=== PATIENT | female | born 1965 | race Caucasian/White ===

== ENCOUNTER 2019-03-03 19:10 | Observation (INO) | payer BC ==
[2019-03-03] MEDS ORDERED: Ondansetron 4 MG/2 ML SDV IVPUSH ONE (19:33)
[2019-03-03 19:59] LABS: CHLORIDE,CL 101 mmol/L (98-107); SODIUM,NA 139 mmol/L (136-145)
[2019-03-03] MEDS: Sodium Chloride 0.9% 10 ML Syringe FLUSH PRN ×2 (20:08→21:11)
[2019-03-03] MEDS ORDERED: Iopamidol 755 Mg/ML 100 ML Bottle IVPUSH ONE (20:15)
--- NOTE | 2019-03-03 20:28 | EDM.PDOC ---
ED HPI GENERAL MEDICAL PROBLEM - General Chief Complaint: Chest Pain Stated Complaint: CHEST PAIN Time Seen by Provider: 03/03/19 19:34 Source of Information: Reports: Patient History Limitations: Reports: No Limitations - History of Present Illness INITIAL COMMENTS - FREE TEXT/NARRATIVE: Patient comes to ER with history of left sided chest pain that radiates to left neck/shoulder/arm. Reports left lower jawline felt heavy/numb and affected her speech for a short while. Left arm still feels heavy. 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 Also chronic spinal pain. Receives injections in neck/spine for the pain. No history of SD/CAD but has strong family history of early SD. Father had SD in late 40s, mother in early 50s. Is followed by Cardiology at [place]. No history of similar pain. No recent health changes/trauma/heavy lifting. [place] more diaphoretic yesterday and today but denies symptoms of oncoming illness such as fever/chills/viral complaints. Does have history of hiatal hernia that sometimes acts up and causes lower chest discomfort. This does not feel like that per patient. [place] mildly SOB when diaphoretic. Currently not complaining of SOB. Does say left chest pain radiates towards her back sometimes. 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 Left Chest Pain Score (Numeric/FACES): 8 - Related Data Allergies Allergy/AdvReac Type Severity Reaction Status Date / Time No Known Allergies Allergy Verified 03/03/19 19:57 Home Meds: Home Meds Sucralfate 1 mg PO QID 03/03/19 [History] hydroCHLOROthiazide [Hydrochlorothiazide] 25 mg PO DAILY 03/03/19 [History] Past Medical History Cardiovascular History: Reports: Hypertension, Other (See Below) (chronic lower extremity edema) Gastrointestinal History: Reports: GERD, Hiatal Hernia Neurological History: Reports: Brain Injury Endocrine/Metabolic History: Reports: Obesity/BMI 30+ Hematologic History: Reports: Anemia, Iron Deficiency Social & Family History - Tobacco Use Smoking Status *Q: Never Smoker ED ROS GENERAL - Review of Systems Review Of Systems: Comprehensive ROS is negative, except as noted in HPI. ED EXAM, GENERAL - Physical Exam Exam: See Below General Appearance: Alert, No Apparent Distress, Obese Eye Exam: Bilateral Eye: EOMI, PERRL Ears: Normal External Exam Nose: No: Nasal Deformity, Nasal Swelling, Nasal Drainage Throat/Mouth: Normal Lips, Normal Voice, No Airway Compromise Head: Atraumatic, Normocephalic Neck: Supple, Other (tender with palpation over midline of cervical spine and adjacent soft tissue. Good ROM. ) Respiratory/Chest: No Respiratory Distress, Lungs Clear, No Accessory Muscle Use , Other (very tender with palpation over left anterior chest wall adjacent to left sternal border. ) Cardiovascular: Normal Peripheral Pulses, Regular Rate, Rhythm, No Murmur Peripheral Pulses: 2+: Radial (L), Radial (R) GI/Abdominal: Normal Bowel Sounds, Soft, Non-Tender, No Distention (Female) Exam: Deferred Rectal (Female) Exam: Deferred Back Exam: No: CVA Tenderness (L), CVA Tenderness (R), Muscle Spasm, Paraspinal Tenderness, Vertebral Tenderness Extremities: Normal Range of Motion, Non-Tender, Normal Capillary Refill, Pedal Edema Neurological: Alert, Oriented, Normal Cognition, No Motor/Sensory Deficits ( equal tone/strength bilaterally) Psychiatric: Normal Affect, Normal Mood Skin Exam: Warm, Dry, Intact, Normal Color EKG INTERPRETATION EKG Date: 03/03/19 Time: 19:12 Rhythm: NSR Rate (Beats/Min): 88 [place]: Normal P-Wave: Present QRS: Normal ST-T: Normal QT: Normal Course - Vital Signs Last Recorded V/S: Last Vital Signs Temp 36.7 C 03/03/19 19:10 Pulse 82 03/03/19 20:02 Resp 20 03/03/19 20:02 BP 122/86 03/03/19 20:02 Pulse Ox 99 03/03/19 20:02 - Orders/Labs/Meds Orders: Active Orders 24 hr Category Date Time Status EKG Documentation Completion [RC] ASDIRECTED Care 03/03/19 19:38 Active Peripheral IV Care [RC] . DIRECTED Care 03/03/19 19:38 Active Cervical Spine wo Cont [CT] Stat Exams 03/03/19 20:11 Ordered Chest 2V [CR] Stat Exams 03/03/19 19:31 Taken Head wo Cont [CT] Stat Exams 03/03/19 20:11 Ordered PE Chest [Ang Chest] [CT] Stat Exams 03/03/19 20:13 Ordered Sodium Chloride 0.9% [Saline Flush] Med 03/03/19 19:38 Active 10 ml FLUSH ASDIRECTED PRN Peripheral IV Insertion Adult [OM.PC] Routine Oth 03/03/19 19:38 Ordered Medication Orders Sodium Chloride (Normal Saline) 1,000 mls @ 100 mls/hr IV .BOLUS ONE Stop: 03/04/19 07:10 Ondansetron HCl (Zofran) 4 mg IVPUSH Q6H PRN PRN Reason: Nausea/Vomiting Sodium Chloride (Saline Flush) 10 ml FLUSH ASDIRECTED PRN PRN Reason: Keep Vein Open Last Admin: 03/03/19 20:08 Dose: 10 ml Labs: Laboratory Tests 03/03/19 03/03/19 03/03/19 Range/Units 19:00 19:30 19:30 WBC 5.9 (4.0-10.2) K/uL RBC 4.10 (3.77-5.09) M/uL Hgb 12.4 (11.7-15.5) g/dL Hct 36.9 (34.0-46.0) % MCV 90.0 (84.0-98.0) fL MCH 30.2 (28.2-33.3) pg MCHC 33.6 (31.7-36.0) g/dL RDW 13.2 (11.2-14.1) % Plt Count 254 (150-350) K/uL Neut % (Auto) 58.0 (45.0-80.0) % Lymph % (Auto) 30.7 (10.0-50.0) % [place] % (Auto) 9.0 (2.0-14.0) % Eos % (Auto) 2.0 (0.0-5.0) % Baso % (Auto) 0.3 (0.0-2.0) % Neut # (Auto) 3.40 (1.40-7.00) K/uL Lymph # (Auto) 1.80 (0.50-3.50) K/uL [place] # (Auto) 0.53 (0.00-1.00) K/uL Eos # (Auto) 0.12 (0.00-0.50) K/uL Baso # (Auto) 0.02 (0.00-0.20) K/uL PT 9.5 (9.5-12.0) SEC INR 0.9 APTT 27.0 (21.0-31.3) SEC D-Dimer, Quantitative (0-400) ng/mL Sodium 139 (136-145) mmol/L Potassium 3.8 (3.5-5.1) mmol/L Chloride 101 (98-107) mmol/L Carbon Dioxide 26.1 (21.0-32.0) mmol/L BUN 9 (7-18) mg/dL Creatinine 0.62 (0.51-1.17) mg/dL Est Cr Clr Drug Dosing 89.57 mL/min Estimated GFR (MDRD) > 60 mL/min Glucose 89 (74-106) mg/dL Lactic Acid (0.4-2.0) mmol/L Calcium 9.3 (8.5-10.1) mg/dL Magnesium 1.9 (1.8-2.4) mg/dL Total Bilirubin 0.4 (0.2-1.0) mg/dL AST 21 (15-37) U/L ALT 20 (12-78) U/L Alkaline Phosphatase 67 (46-116) IU/L Creatine Kinase 167 (26-308) U/L Creatine Kinase Index 1.7 (0.0-2.5) % CK-MB (CK-2) 2.80 (0.00-3.60) ng/mL Troponin I 0.000 (0.000-0.056) ng/mL NT-Pro-B Natriuret Pep 114 (0-125) pg/mL Total Protein 7.4 (6.4-8.2) g/dL Albumin 3.5 (3.4-5.0) g/dL TSH, Ultra Sensitive 1.214 (0.358-3.740) mIU/mL 03/03/19 03/03/19 Range/Units 19:30 19:30 WBC (4.0-10.2) K/uL RBC (3.77-5.09) M/uL Hgb (11.7-15.5) g/dL Hct (34.0-46.0) % MCV (84.0-98.0) fL MCH (28.2-33.3) pg MCHC (31.7-36.0) g/dL RDW (11.2-14.1) % Plt Count (150-350) K/uL Neut % (Auto) (45.0-80.0) % Lymph % (Auto) (10.0-50.0) % [place] % (Auto) (2.0-14.0) % Eos % (Auto) (0.0-5.0) % Baso % (Auto) (0.0-2.0) % Neut # (Auto) (1.40-7.00) K/uL Lymph # (Auto) (0.50-3.50) K/uL [place] # (Auto) (0.00-1.00) K/uL Eos # (Auto) (0.00-0.50) K/uL Baso # (Auto) (0.00-0.20) K/uL PT (9.5-12.0) SEC INR APTT (21.0-31.3) SEC D-Dimer, Quantitative 583 H (0-400) ng/mL Sodium (136-145) mmol/L Potassium (3.5-5.1) mmol/L Chloride (98-107) mmol/L Carbon Dioxide (21.0-32.0) mmol/L BUN (7-18) mg/dL Creatinine (0.51-1.17) mg/dL Est Cr Clr Drug Dosing mL/min Estimated GFR (MDRD) mL/min Glucose (74-106) mg/dL Lactic Acid 1.1 (0.4-2.0) mmol/L Calcium (8.5-10.1) mg/dL Magnesium (1.8-2.4) mg/dL Total Bilirubin (0.2-1.0) mg/dL AST (15-37) U/L ALT (12-78) U/L Alkaline Phosphatase (46-116) IU/L Creatine Kinase (26-308) U/L Creatine Kinase Index (0.0-2.5) % CK-MB (CK-2) (0.00-3.60) ng/mL Troponin I (0.000-0.056) ng/mL NT-Pro-B Natriuret Pep (0-125) pg/mL Total Protein (6.4-8.2) g/dL Albumin (3.4-5.0) g/dL TSH, Ultra Sensitive (0.358-3.740) mIU/mL Meds: Medications Generic Name Dose Route Start Last Admin Trade Name Freq PRN Reason Stop Dose Admin Sodium Chloride 1,000 mls @ 100 mls/hr 03/03/19 21:11 Normal Saline IV 03/04/19 07:10 .BOLUS ONE Ondansetron HCl 4 mg 03/03/19 21:05 Zofran IVPUSH Q6H PRN Nausea/Vomiting Sodium Chloride 10 ml 03/03/19 19:38 03/03/19 21:11 Saline Flush FLUSH 10 ml ASDIRECTED PRN Administration Keep Vein Open Discontinued Medications Generic Name Dose Route Start Last Admin Trade Name Freq PRN Reason Stop Dose Admin Iopamidol 100 ml 03/03/19 20:15 03/03/19 20:44 [id number] (76%) IVPUSH 03/03/19 20:16 100 ml ONETIME ONE Administration Ketorolac Tromethamine 30 mg 03/03/19 20:29 03/03/19 21:09 Toradol IVPUSH 03/03/19 20:30 30 mg ONETIME ONE Administration Ondansetron HCl 4 mg 03/03/19 19:33 03/03/19 20:08 Zofran IVPUSH 03/03/19 19:34 4 mg ONETIME ONE Administration - Re-Assessments/Exams Free Text/Narrative Re-Assessment/Exam: Cardiac routines ordered given chest pain complaint. Strong family history of CAD. Patient also has confounding factors with the chronic neck pain and degenerative changes which could cause radicular symptoms, as well as hiatal hernia which could also contribute to a chest pain complaint. DDimer elevated, thus PE also within differential. Cardiac labs/chest xray/CBC/Chem otherwise unremarkable. Symptoms are not overly suggestive of stroke given history and exam, however when this was discussed with the patient she was agreeable with having a head CT to rule out obvious intracranial changes. C-Spine also added given her pain history. She has had additional falls since her initial fall on ice 3 years ago and has sustained some collective traumas. Zofran ordered as patient felt mildly nauseated. Toradol given once lab results available. Departure - Departure Time of Disposition: 21:03 Disposition: Refer to Observation Condition: Good Clinical Impression: Atypical chest pain, Elevated d-dimer - Discharge Information *PRESCRIPTION DRUG MONITORING PROGRAM REVIEWED*: Not Applicable *COPY OF PRESCRIPTION DRUG MONITORING REPORT IN PATIENT CESAR: Not Applicable Sepsis Event Note - Evaluation Sepsis Screening Result: No Definite Risk - Focused Exam Vital Signs: Vital Signs Temp Pulse Resp BP Pulse Ox 03/03/19 20:02 82 20 122/86 99 03/03/19 19:50 81 16 132/74 98 03/03/19 19:35 86 20 154/90 H 99 03/03/19 19:10 36.7 C 86 18 140/80 97 Date Exam was Performed: 03/03/19 Time Exam was Performed: 21:12 - Problem List & Annotations (1) Atypical chest pain SNOMED Code(s): 897598675 Code(s): R07.89 - OTHER CHEST PAIN Status: Acute Priority: High Current Visit: Yes Onset Date: ~03/03/19 Annotation/Comment:: Left sided chest pain that radiates to left neck/lower jaw, left shoulder and arm. History of chronic neck pain. Character more suggestive of musculoskeletal cause. Patient has history of neck injury and chronic pain. Also strong family history of CAD. Serial troponins and telemetry ordered. + DDimer. Patient has had CT of chest ordered and currently waiting for formal reading. Also had CT of head and neck done due to history of a few falls over the past year and also to rule out intracranial contribution to complaint of left lower jaw numbness and feeling like she was slurring words earlier. Results also pending. (2) Elevated d-dimer SNOMED Code(s): 551323134 Code(s): R79.89 - OTHER SPECIFIED ABNORMAL FINDINGS OF BLOOD CHEMISTRY Status: Acute Priority: High Current Visit: Yes Onset Date: ~03/03/19 Annotation/Comment:: CT of chest performed and awaiting formal results at this time. (3) Iron deficiency anemia SNOMED Code(s): 28059448 Code(s): D50.9 - IRON DEFICIENCY ANEMIA, UNSPECIFIED Status: Chronic Priority: Low Current Visit: No Annotation/Comment:: stable. Has received IV iron therapy in past. (4) Hiatal hernia SNOMED Code(s): 63763056 Code(s): K44.9 - DIAPHRAGMATIC HERNIA WITHOUT OBSTRUCTION OR GANGRENE Status: Chronic Priority: Low Current Visit: No Annotation/Comment:: History of hiatal hernia and GERD symptoms. Patient does not feel that this chest pain is consistent with when her hiatal hernia was symptomatic in the past. (5) TBI (traumatic brain injury) SNOMED Code(s): 705588416 Code(s): S06.9X9A - UNSP INTRACRANIAL INJURY W LOC OF UNSP DURATION, INIT Status: Chronic Priority: Low Current Visit: Yes Annotation/Comment:: History of TBI approximately 3 years ago. Continues to deal with ongoing issues such as short term memory impairment. Receives PT/OT for this. (6) HTN (hypertension) SNOMED Code(s): 46311568 Code(s): I10 - ESSENTIAL (PRIMARY) HYPERTENSION Status: Chronic Priority : Low Current Visit: No Qualifiers: Hypertension type: essential hypertension Qualified Code(s): I10 - Essential (primary) hypertension - Problem List Review Problem List Initiated/Reviewed/Updated: Yes - My Orders Last 24 Hours: My Active Orders 03/03/19 19:31 Chest 2V [CR] Stat 03/03/19 19:38 EKG Documentation Completion [RC] ASDIRECTED Peripheral IV Care [RC] . DIRECTED Sodium Chloride 0.9% [Saline Flush] 10 ml FLUSH ASDIRECTED PRN Peripheral IV Insertion Adult [OM.PC] Routine 03/03/19 20:11 Cervical Spine wo Cont [CT] Stat Head wo Cont [CT] Stat 03/03/19 20:13 PE Chest [Ang Chest] [CT] Stat - Assessment/Plan Admission H&P: Please use this note as an admission H&P Last 24 Hours: My Active Orders 03/03/19 19:31 Chest 2V [CR] Stat 03/03/19 19:38 EKG Documentation Completion [RC] ASDIRECTED Peripheral IV Care [RC] . DIRECTED Sodium Chloride 0.9% [Saline Flush] 10 ml FLUSH ASDIRECTED PRN Peripheral IV Insertion Adult [OM.PC] Routine 03/03/19 20:11 Cervical Spine wo Cont [CT] Stat Head wo Cont [CT] Stat 03/03/19 20:13 PE Chest [Ang Chest] [CT] Stat Assessment:: As above. Patient stable and suitable for general supervision. She is not able to recall her regular meds at this time. will call us with meds once he gets home. Anticipate discharge tomorrow if serial troponins and CT scans are negative.
[2019-03-03] MEDS ORDERED: Ketorolac 30 MG/ML SDV IVPUSH ONE (20:29)
[2019-03-03] MEDS ORDERED: Ondansetron 4 MG/2 ML SDV IVPUSH PRN (21:05)
[2019-03-03] MEDS ORDERED: Sodium Chloride 0.9% 1,000 ML IV ONE (21:11)
--- NOTE | 2019-03-03 22:32 | PCM.SN ---
- Free Text/Narrative Note: CT of head and chest unremarkable for PE/other acute changes per Radiology. Neck shows increased degenerative changes at level C2-3 which would potentially cause discomfort in left lower jaw/neck area.
[2019-03-04] MEDS: Acetaminophen 325 MG Tab PO PRN ×2 (01:57→06:19)
[2019-03-04] MEDS ORDERED: Hydrochlorothiazide 25 MG Tab PO SCH (08:00)
[2019-03-04 08:08] LABS: CHLORIDE,CL 105 mmol/L (98-107); SODIUM,NA 141 mmol/L (136-145)
[2019-03-04] MEDS ORDERED: traMADol 50 MG Tab PO ONE (11:24)
[2019-03-04] MEDS ORDERED: Acetaminophen 500 MG Tab PO ONE (11:24)
--- NOTE | 2019-03-04 11:34 | PCM.DCSUM1 ---
Discharge Summary - Hospital Course Brief History: Admitted for r/o chest pain protocol. Complaint of left sided neck/shoulder/chest pain. Diagnosis: Stroke: No - Discharge Data Discharge Date: 03/04/19 Discharge Disposition: Home, Self-Care 01 Condition: Good - Referral to Home Health Primary Care Physician: Sariah Torrez PA-C - Discharge Diagnosis/Problem(s) (1) Atypical chest pain SNOMED Code(s): 763164405 ICD Code: R07.89 - OTHER CHEST PAIN Status: Acute Priority: High Current Visit: Yes Onset Date: ~03/03/19 Problem Details: Left sided chest pain that radiates to left neck/lower jaw, left shoulder and arm. History of chronic neck pain. Character more suggestive of musculoskeletal cause. Patient has history of neck injury and chronic pain. Serial troponins all 0.[address] to r/o PE negative. CT of neck showed increased degenerative change C2-3 which would cause radicular symptoms in area of neck/mandible. (2) Elevated d-dimer SNOMED Code(s): 822533546 ICD Code: R79.89 - OTHER SPECIFIED ABNORMAL FINDINGS OF BLOOD CHEMISTRY Status: Acute Priority: High Current Visit: Yes Onset Date: ~03/03/19 Problem Details: CT of chest negative for PE or other acute changes. (3) Iron deficiency anemia SNOMED Code(s): 66178428 ICD Code: D50.9 - IRON DEFICIENCY ANEMIA, UNSPECIFIED Status: Chronic Priority: Low Current Visit: No Problem Details: stable. Has received IV iron therapy in past. (4) Hiatal hernia SNOMED Code(s): 26881966 ICD Code: K44.9 - DIAPHRAGMATIC HERNIA WITHOUT OBSTRUCTION OR GANGRENE Status: Chronic Priority: Low Current Visit: No Problem Details: History of hiatal hernia and GERD symptoms. Patient does not feel that this chest pain is consistent with when her hiatal hernia was symptomatic in the past. (5) TBI (traumatic brain injury) SNOMED Code(s): 492215236 ICD Code: S06.9X9A - UNSP INTRACRANIAL INJURY W LOC OF UNSP DURATION, INIT Status: Chronic Priority: Low Current Visit: Yes Problem Details: History of TBI approximately 3 years ago. Continues to deal with ongoing issues such as short term memory impairment. Receives PT/OT for this. (6) HTN (hypertension) SNOMED Code(s): 16806547 ICD Code: I10 - ESSENTIAL (PRIMARY) HYPERTENSION Status: Chronic Priority : Low Current Visit: No Qualifiers: Hypertension type: essential hypertension Qualified Code(s): I10 - Essential (primary) hypertension - Patient Summary/Data Hospital Course: Serial troponins negative. Unremarkable telemetry. CT scans negative except for increased degenerative changes in cervical spine. Highly suspect musculo- skeletal etiology for pain complaint. Patient will be discharged today and is to follow up with her own providers. May need MRI study to more closely look at cervical changes. - Patient Instructions Diet: Usual Diet as Tolerated (anti-inflammatory diet recommended. ) Activity: As Tolerated Showering/Bathing: May Shower Other/Special Instructions: Consider using Magnesium Glycinate or Taurate 500mg daily. Also can rub in topical magnesium gel into tender area. CBD oil and rub can also be trialed as discussed. Dietary changes as recommended to see if pain improves/general health improves. Follow up with your providers. You may need updatated MRI of neck. Follow up in ER as needed if you have worsening problems. - Discharge Plan *PRESCRIPTION DRUG MONITORING PROGRAM REVIEWED*: Not Applicable *COPY OF PRESCRIPTION DRUG MONITORING REPORT IN PATIENT CESAR: Not Applicable Home Medications: Home Meds Sucralfate 1 mg PO QID 03/03/19 [History] hydroCHLOROthiazide [Hydrochlorothiazide] 25 mg PO DAILY 03/03/19 [History] Benzonatate [Tessalon Perle] 100 mg PO TID PRN 03/04/19 [History] Estrogens, Conjugated [Premarin Vaginal Crm] 0.5 - 1 mg VAG WEEKLY 03/04/19 [ History] Gabapentin [Neurontin] 600 mg PO TID 03/04/19 [History] Ipratropium/Albuterol Sulfate [Iprat-Albut 0.5-3(2.5) MG/3 ML] 1 unit INH Q6H [History] Metoprolol Succinate 25 mg PO DAILY 03/04/19 [History] Ondansetron [Zofran ODT] 4 mg PO Q4H PRN 03/04/19 [History] Pantoprazole Sodium 1 tab PO BIDAC 03/04/19 [History] SUMAtriptan [Imitrex] 50 mg PO ASDIRECTED PRN 03/04/19 [History] Sucralfate 1 gm PO QID 03/04/19 [History] Venlafaxine HCl [Venlafaxine ER] 37.5 mg PO DAILY 03/04/19 [History] Venlafaxine HCl [Venlafaxine HCl ER] 75 mg PO DAILY 03/04/19 [History] cycloSPORINE [Restasis] 1 drop EYEBOTH BID 03/04/19 [History] Forms: ED Department Discharge Referrals: Sariah Torrez PA-C [Primary Care Provider] - - Discharge Summary/Plan Comment DC Time >30 min.: No - General Info Date of Service: 03/04/19 Admission Dx/Problem (Free Text: Chest/neck/shoulder pain, discomfort radiating down arm. Subjective Update: Continues to have discomfort left neck/shoulder/anterior chest. Made worse with movement. No SOB. No new complaints. Functional Status: Reports: Pain Controlled (pain improved with Toradol. Is requesting Tylenol at this time. ), Tolerating Diet, Ambulating, Urinating. Denies: New Symptoms Numeric/FACES Score: 6 - Review of Systems General: Reports: No Symptoms HEENT: Reports: No Symptoms Pulmonary: Reports: No Symptoms Cardiovascular: Reports: Chest Pain (left anterior chest/shoulder/neck). Denies : Palpitations, Dyspnea on Exertion, Orthopnea, Edema Gastrointestinal: Reports: No Symptoms Genitourinary: Reports: No Symptoms Musculoskeletal: Reports: Neck Pain, Shoulder Pain. Denies: Joint Swelling Skin: Reports: No Symptoms Neurological: Reports: No Symptoms Psychiatric: Reports: No Symptoms - Patient Data Vitals - Most Recent: Last Vital Signs Temp 36.2 C 03/04/19 08:00 Pulse 60 03/04/19 08:00 Resp 16 03/04/19 08:00 BP 128/71 03/04/19 08:00 Pulse Ox 99 03/04/19 08:00 Weight - Most Recent: 108 kg I&O - Last 24 hours: Intake & Output 03/03/19 03/04/19 03/04/19 22:59 06:59 14:59 Intake Total 1420 1600 Output Total 600 625 Balance -814 124 9083 Lab Results - Last 24 hrs: Laboratory Results - last 24 hr 03/03/19 03/03/19 03/03/19 Range/Units 19:00 19:30 19:30 WBC 5.9 (4.0-10.2) K/uL RBC 4.10 (3.77-5.09) M/uL Hgb 12.4 (11.7-15.5) g/dL Hct 36.9 (34.0-46.0) % MCV 90.0 (84.0-98.0) fL MCH 30.2 (28.2-33.3) pg MCHC 33.6 (31.7-36.0) g/dL RDW 13.2 (11.2-14.1) % Plt Count 254 (150-350) K/uL Neut % (Auto) 58.0 (45.0-80.0) % Lymph % (Auto) 30.7 (10.0-50.0) % [place] % (Auto) 9.0 (2.0-14.0) % Eos % (Auto) 2.0 (0.0-5.0) % Baso % (Auto) 0.3 (0.0-2.0) % Neut # (Auto) 3.40 (1.40-7.00) K/uL Lymph # (Auto) 1.80 (0.50-3.50) K/uL [place] # (Auto) 0.53 (0.00-1.00) K/uL Eos # (Auto) 0.12 (0.00-0.50) K/uL Baso # (Auto) 0.02 (0.00-0.20) K/uL PT 9.5 (9.5-12.0) SEC INR 0.9 APTT 27.0 (21.0-31.3) SEC D-Dimer, Quantitative (0-400) ng/mL Sodium 139 (136-145) mmol/L Potassium 3.8 (3.5-5.1) mmol/L Chloride 101 (98-107) mmol/L Carbon Dioxide 26.1 (21.0-32.0) mmol/L BUN 9 (7-18) mg/dL Creatinine 0.62 (0.51-1.17) mg/dL Est Cr Clr Drug Dosing 89.57 mL/min Estimated GFR (MDRD) > 60 mL/min Glucose 89 (74-106) mg/dL Lactic Acid (0.4-2.0) mmol/L Calcium 9.3 (8.5-10.1) mg/dL Magnesium 1.9 (1.8-2.4) mg/dL Total Bilirubin 0.4 (0.2-1.0) mg/dL AST 21 (15-37) U/L ALT 20 (12-78) U/L Alkaline Phosphatase 67 (46-116) IU/L Creatine Kinase 167 (26-308) U/L Creatine Kinase Index 1.7 (0.0-2.5) % CK-MB (CK-2) 2.80 (0.00-3.60) ng/mL Troponin I 0.000 (0.000-0.056) ng/mL NT-Pro-B Natriuret Pep 114 (0-125) pg/mL Total Protein 7.4 (6.4-8.2) g/dL Albumin 3.5 (3.4-5.0) g/dL TSH, Ultra Sensitive 1.214 (0.358-3.740) mIU/mL Specimen Type Urine Color Urine Appearance Urine pH (5.0-9.0) Ur Specific [place] (1.005-1.030) Urine Protein (NEGATIVE) mg/dL Urine Glucose (UA) (NEGATIVE) mg/dL Urine Ketones (NEGATIVE) mg/dL Urine Occult Blood (NEGATIVE) Urine Nitrite (NEGATIVE) Urine Bilirubin (NEGATIVE) Urine Urobilinogen (0.2-1.0) E.U./dL Ur Leukocyte Esterase (NEGATIVE) Urine RBC /HPF Urine WBC /HPF Ur Epithelial Cells /LPF Urine Bacteria (NONE TO FEW) /HPF 03/03/19 03/03/19 03/03/19 Range/Units 19:30 19:30 21:09 WBC (4.0-10.2) K/uL RBC (3.77-5.09) M/uL Hgb (11.7-15.5) g/dL Hct (34.0-46.0) % MCV (84.0-98.0) fL MCH (28.2-33.3) pg MCHC (31.7-36.0) g/dL RDW (11.2-14.1) % Plt Count (150-350) K/uL Neut % (Auto) (45.0-80.0) % Lymph % (Auto) (10.0-50.0) % [place] % (Auto) (2.0-14.0) % Eos % (Auto) (0.0-5.0) % Baso % (Auto) (0.0-2.0) % Neut # (Auto) (1.40-7.00) K/uL Lymph # (Auto) (0.50-3.50) K/uL [place] # (Auto) (0.00-1.00) K/uL Eos # (Auto) (0.00-0.50) K/uL Baso # (Auto) (0.00-0.20) K/uL PT (9.5-12.0) SEC INR APTT (21.0-31.3) SEC D-Dimer, Quantitative 583 H (0-400) ng/mL Sodium (136-145) mmol/L Potassium (3.5-5.1) mmol/L Chloride (98-107) mmol/L Carbon Dioxide (21.0-32.0) mmol/L BUN (7-18) mg/dL Creatinine (0.51-1.17) mg/dL Est Cr Clr Drug Dosing mL/min Estimated GFR (MDRD) mL/min Glucose (74-106) mg/dL Lactic Acid 1.1 (0.4-2.0) mmol/L Calcium (8.5-10.1) mg/dL Magnesium (1.8-2.4) mg/dL Total Bilirubin (0.2-1.0) mg/dL AST (15-37) U/L ALT (12-78) U/L Alkaline Phosphatase (46-116) IU/L Creatine Kinase (26-308) U/L Creatine Kinase Index (0.0-2.5) % CK-MB (CK-2) (0.00-3.60) ng/mL Troponin I (0.000-0.056) ng/mL NT-Pro-B Natriuret Pep (0-125) pg/mL Total Protein (6.4-8.2) g/dL Albumin (3.4-5.0) g/dL TSH, Ultra Sensitive (0.358-3.740) mIU/mL Specimen Type Urinblad Urine Color Yellow Urine Appearance Clear Urine pH 7.5 (5.0-9.0) Ur Specific [place] 1.015 (1.005-1.030) Urine Protein Negative (NEGATIVE) mg/dL Urine Glucose (UA) Negative (NEGATIVE) mg/dL Urine Ketones Negative (NEGATIVE) mg/dL Urine Occult Blood Negative (NEGATIVE) Urine Nitrite Negative (NEGATIVE) Urine Bilirubin Negative (NEGATIVE) Urine Urobilinogen 0.2 (0.2-1.0) E.U./dL Ur Leukocyte Esterase Negative (NEGATIVE) Urine RBC Not seen /HPF Urine WBC Not seen /HPF Ur Epithelial Cells Rare /LPF Urine Bacteria Rare (NONE TO FEW) /HPF 03/04/19 03/04/19 03/04/19 Range/Units 01:53 07:40 07:40 WBC 4.1 (4.0-10.2) K/uL RBC 3.76 L (3.77-5.09) M/uL Hgb 11.4 L (11.7-15.5) g/dL Hct 34.4 (34.0-46.0) % MCV 91.5 (84.0-98.0) fL MCH 30.3 (28.2-33.3) pg MCHC 33.1 (31.7-36.0) g/dL RDW 13.5 (11.2-14.1) % Plt Count 235 (150-350) K/uL Neut % (Auto) 47.6 (45.0-80.0) % Lymph % (Auto) 39.1 (10.0-50.0) % [place] % (Auto) 9.4 (2.0-14.0) % Eos % (Auto) 3.4 (0.0-5.0) % Baso % (Auto) 0.5 (0.0-2.0) % Neut # (Auto) 1.97 (1.40-7.00) K/uL Lymph # (Auto) 1.62 (0.50-3.50) K/uL [place] # (Auto) 0.39 (0.00-1.00) K/uL Eos # (Auto) 0.14 (0.00-0.50) K/uL Baso # (Auto) 0.02 (0.00-0.20) K/uL PT (9.5-12.0) SEC INR APTT (21.0-31.3) SEC D-Dimer, Quantitative (0-400) ng/mL Sodium (136-145) mmol/L Potassium (3.5-5.1) mmol/L Chloride (98-107) mmol/L Carbon Dioxide (21.0-32.0) mmol/L BUN (7-18) mg/dL Creatinine (0.51-1.17) mg/dL Est Cr Clr Drug Dosing mL/min Estimated GFR (MDRD) mL/min Glucose (74-106) mg/dL Lactic Acid (0.4-2.0) mmol/L Calcium (8.5-10.1) mg/dL Magnesium (1.8-2.4) mg/dL Total Bilirubin (0.2-1.0) mg/dL AST (15-37) U/L ALT (12-78) U/L Alkaline Phosphatase (46-116) IU/L Creatine Kinase (26-308) U/L Creatine Kinase Index (0.0-2.5) % CK-MB (CK-2) (0.00-3.60) ng/mL Troponin I 0.000 0.000 (0.000-0.056) ng/mL NT-Pro-B Natriuret Pep (0-125) pg/mL Total Protein (6.4-8.2) g/dL Albumin (3.4-5.0) g/dL TSH, Ultra Sensitive (0.358-3.740) mIU/mL Specimen Type Urine Color Urine Appearance Urine pH (5.0-9.0) Ur Specific [place] (1.005-1.030) Urine Protein (NEGATIVE) mg/dL Urine Glucose (UA) (NEGATIVE) mg/dL Urine Ketones (NEGATIVE) mg/dL Urine Occult Blood (NEGATIVE) Urine Nitrite (NEGATIVE) Urine Bilirubin (NEGATIVE) Urine Urobilinogen (0.2-1.0) E.U./dL Ur Leukocyte Esterase (NEGATIVE) Urine RBC /HPF Urine WBC /HPF Ur Epithelial Cells /LPF Urine Bacteria (NONE TO FEW) /HPF 03/04/19 Range/Units 07:40 WBC (4.0-10.2) K/uL RBC (3.77-5.09) M/uL Hgb (11.7-15.5) g/dL Hct (34.0-46.0) % MCV (84.0-98.0) fL MCH (28.2-33.3) pg MCHC (31.7-36.0) g/dL RDW (11.2-14.1) % Plt Count (150-350) K/uL Neut % (Auto) (45.0-80.0) % Lymph % (Auto) (10.0-50.0) % [place] % (Auto) (2.0-14.0) % Eos % (Auto) (0.0-5.0) % Baso % (Auto) (0.0-2.0) % Neut # (Auto) (1.40-7.00) K/uL Lymph # (Auto) (0.50-3.50) K/uL [place] # (Auto) (0.00-1.00) K/uL Eos # (Auto) (0.00-0.50) K/uL Baso # (Auto) (0.00-0.20) K/uL PT (9.5-12.0) SEC INR APTT (21.0-31.3) SEC D-Dimer, Quantitative (0-400) ng/mL Sodium 141 (136-145) mmol/L Potassium 3.7 (3.5-5.1) mmol/L Chloride 105 (98-107) mmol/L Carbon Dioxide 26.9 (21.0-32.0) mmol/L BUN 8 (7-18) mg/dL Creatinine 0.64 (0.51-1.17) mg/dL Est Cr Clr Drug Dosing 86.77 mL/min Estimated GFR (MDRD) > 60 mL/min Glucose 97 (74-106) mg/dL Lactic Acid (0.4-2.0) mmol/L Calcium 8.8 (8.5-10.1) mg/dL Magnesium (1.8-2.4) mg/dL Total Bilirubin (0.2-1.0) mg/dL AST (15-37) U/L ALT (12-78) U/L Alkaline Phosphatase (46-116) IU/L Creatine Kinase (26-308) U/L Creatine Kinase Index (0.0-2.5) % CK-MB (CK-2) (0.00-3.60) ng/mL Troponin I (0.000-0.056) ng/mL NT-Pro-B Natriuret Pep (0-125) pg/mL Total Protein (6.4-8.2) g/dL Albumin (3.4-5.0) g/dL TSH, Ultra Sensitive (0.358-3.740) mIU/mL Specimen Type Urine Color Urine Appearance Urine pH (5.0-9.0) Ur Specific [place] (1.005-1.030) Urine Protein (NEGATIVE) mg/dL Urine Glucose (UA) (NEGATIVE) mg/dL Urine Ketones (NEGATIVE) mg/dL Urine Occult Blood (NEGATIVE) Urine Nitrite (NEGATIVE) Urine Bilirubin (NEGATIVE) Urine Urobilinogen (0.2-1.0) E.U./dL Ur Leukocyte Esterase (NEGATIVE) Urine RBC /HPF Urine WBC /HPF Ur Epithelial Cells /LPF Urine Bacteria (NONE TO FEW) /HPF Med Orders - Current: Current Medications Acetaminophen (Tylenol) 650 mg PO Q4H PRN PRN Reason: Pain (mild 1-3) Last Admin: 03/04/19 06:19 Dose: 650 mg Hydrochlorothiazide (Hydrochlorothiazide) 25 mg PO DAILY HARLEEN Last Admin: 03/04/19 07:13 Dose: 25 mg Ondansetron HCl (Zofran) 4 mg IVPUSH Q6H PRN PRN Reason: Nausea/Vomiting Sodium Chloride (Saline Flush) 10 ml FLUSH ASDIRECTED PRN PRN Reason: Keep Vein Open Last Admin: 03/03/19 21:11 Dose: 10 ml Discontinued Medications Acetaminophen (Tylenol Extra Strength) 1,000 mg PO ONETIME ONE Stop: 03/04/19 11:25 Sodium Chloride (Normal Saline) 1,000 mls @ 100 mls/hr IV .BOLUS ONE Stop: 03/04/19 07:10 Last Admin: 03/03/19 21:25 Dose: 100 mls/hr Iopamidol (Isovue-370 (76%)) 100 ml IVPUSH ONETIME ONE Stop: 03/03/19 20:16 Last Admin: 03/03/19 20:44 Dose: 100 ml Ketorolac Tromethamine (Toradol) 30 mg IVPUSH ONETIME ONE Stop: 03/03/19 20:30 Last Admin: 03/03/19 21:09 Dose: 30 mg Ondansetron HCl (Zofran) 4 mg IVPUSH ONETIME ONE Stop: 03/03/19 19:34 Last Admin: 03/03/19 20:08 Dose: 4 mg Tramadol HCl (Ultram) 100 mg PO ONETIME ONE Stop: 03/04/19 11:25 - Exam General: Reports: Alert, Oriented HEENT: Reports: Pupils Equal, Pupils Reactive, EOMI, Mucous Membr. Moist/[place] Neck: Reports: Supple Lungs: Reports: Clear to Auscultation, Normal Respiratory Effort Cardiovascular: Reports: Regular Rate, Regular Rhythm GI/Abdominal Exam: Soft, Non-Tender (Female) Exam: Deferred Rectal (Female) Exam: Deferred Back Exam: Denies: CVA Tenderness (L), CVA Tenderness (R), Muscle Spasm, Paraspinal Tenderness, Vertebral Tenderness Extremities: Non-Tender, Normal Capillary Refill Skin: Reports: Warm, Dry Neurological: Reports: No New Focal Deficit Psy/Mental Status: Reports: Alert, Normal Affect, Normal Mood Physical Findings Comments:: Tender with palpation left neck/left mandible/pectoral area. Reproduces patient 's pain. EKG INTERPRETATION EKG Date: 03/04/19 Time: 07:32 Rhythm: NSR Rate (Beats/Min): 64 [place]: Normal P-Wave: Present QRS: Normal ST-T: Normal QT: Normal Comparison: No Change
== END 2019-03-04 11:55 | disposition home or self-care (01) ==
LOC: LL.ED 19:10 → UNDOADMOB 20:35 → LL.MS 20:35 → UNDODISOB 03-04 11:55
PROVIDERS: ADMIT Emergency Medicine; ATTEND Emergency Medicine
DX: R07.89 Other chest pain (principal); R79.1 Abnormal coagulation profile; D50.9 Iron deficiency anemia, unspecified; K44.9 Diaphragmatic hernia without obstruction or gangrene; S06.9X9A Unspecified intracranial injury with loss of consciousness of unspecified duration, initial encounter; K21.9 Gastro-esophageal reflux disease without esophagitis; I10 Essential (primary) hypertension; E66.9 Obesity, unspecified; Z68.41 Body mass index [BMI] 40.0-44.9, adult
CPT/HCPCS: 36415; 70450; 71046; 71275; 72125; 80048; 80053; 81001; 82550; 82553; 83605; 83735; 83880; 84443; 84484; 85025; 85379; 85610; 85730; 93005; 96374; 96375; 99285-25; A9270-GY; J1885; J2405; J7030; Q9967

== ENCOUNTER 2021-12-23 15:10 | Emergency (ER) | payer BC, MEDICARE ==
[2021-12-23] MEDS ORDERED: Aspirin 81 MG Tab.Chew PO ONE (15:20)
[2021-12-23] MEDS ORDERED: Nitroglycerin 0.4 MG Tab.SL SL ONE ×2 (15:21→16:27)
[2021-12-23] MEDS ORDERED: Ondansetron 4 MG/2 ML SDV IVPUSH ONE (15:26)
[2021-12-23] MEDS ORDERED: Sodium Chloride 0.9% 10 ML Syringe FLUSH PRN (15:29)
[2021-12-23 15:48] LABS: ANION GAP 8.7 meq/L (7-15)
[2021-12-23 15:58] LABS: PTT,PARTIAL THROMBOPLSTIN TIME 24.5 SEC (23.6-29.8)
== END 2021-12-23 17:40 | disposition home or self-care (01) ==
LOC: LL.ED 15:10
DX: I20.9 Angina pectoris, unspecified (principal); I10 Essential (primary) hypertension; E66.9 Obesity, unspecified; Z68.30 Body mass index [BMI] 30.0-30.9, adult
CPT/HCPCS: 36415; 71045; 80053; 84484; 85025; 85379; 85610; 85730; 93005; 96374; 99285; A9270; J2405; J3490; 93010; 99284

== ENCOUNTER 2022-12-17 13:11 | Emergency (ER) | payer BC, MEDICARE ==
[2022-12-17 13:35] LABS: BASOPHILS ABSOLUTE AUTO 0.02 K/uL (0.00-0.20); BASOPHILS PERCENT AUTO 0.4 % (0.0-2.0); EOSINOPHILS ABSOLUTE AUTO 0.05 K/uL (0.00-0.50); HEMATOCRIT 36.9 % (34.0-46.0); HEMOGLOBIN 12.3 g/dL (11.7-15.5); LYMPHOCYTES ABSOLUTE AUTO 1.68 K/uL (0.50-3.50); LYMPHOCYTES PERCENT AUTO 34.3 % (10.0-50.0); MEAN CORPUSCULAR HEMOGLOBIN 30.2 pg (28.2-33.3); MEAN CORPUSCULAR HGB CONC 33.3 g/dL (31.7-36.0); MEAN CORPUSCULAR VOLUME 90.7 fL (84.0-98.0); MONOCYTES ABSOLUTE AUTO 0.36 K/uL (0.00-1.00); MONOCYTES PERCENT AUTO 7.3 % (2.0-14.0); NEUTROPHILS ABSOLUTE AUTO 2.79 K/uL (1.40-7.00); PLATELET COUNT,PLT 234 K/uL (150-350); RED BLOOD CELL COUNT 4.07 M/uL (3.77-5.09); RED CELL DISTRIBUTION WIDTH 13.7 % (11.2-14.1); WHITE BLOOD CELL COUNT,WBC 4.9 K/uL (4.0-10.2)
[2022-12-17 13:52] LABS: PROTHROMBIN TIME 9.6 SEC (9.0-11.1); PTT,PARTIAL THROMBOPLSTIN TIME 24.5 SEC (23.6-29.8)
[2022-12-17 13:57] LABS: ALANINE AMINOTRANSFERASE,ALT 12 U/L (12-78); ALBUMIN 3.8 g/dL (3.4-5.0); ALKALINE PHOSPHATASE 66 IU/L (46-116); ANION GAP 9.6 meq/L (7-15); ASPARTATE AMNIOTRANSFERASE,AST 18 U/L (15-37); BILIRUBIN TOTAL 0.3 mg/dL (0.2-1.0); BLOOD UREA NITROGEN,BUN 6 mg/dL (7-18); CALCIUM 8.1 mg/dL (8.5-10.1); CARBON DIOXIDE,CO2 26.4 mmol/L (21.0-32.0); CHLORIDE,CL 102 mmol/L (98-107); CREATINE KINASE,CK 161 U/L (26-308); CREATININE 0.61 mg/dL (0.51-1.17); ETHANOL BLOOD MEDICAL 0.227 g/dL (0.000-0.080); GLUCOSE RANDOM 95 mg/dL (70-99); LIPASE 53 U/L (16-77); POTASSIUM,K 3.8 mmol/L (3.5-5.1); PROTEIN TOTAL,TP 6.7 g/dL (6.4-8.2); SODIUM,NA 138 mmol/L (136-145)
[2022-12-17 13:58] LABS: ESTIMATED GFR 104 mL/min (>=60)
[2022-12-17] MEDS: Iopamidol 755 Mg/ML 100 ML Bottle IVPUSH ONE (14:17)
[2022-12-17 14:24] LABS: PCO2 ARTERIAL,POC 38 mmHg (35-48); PH ARTERIAL,POC 7.4 pH (7.35-7.45)
[2022-12-17 14:25] LABS: BASE EXCESS ARTERIAL,POC -2 mmol/L (-2-3); HCO3 ARTERIAL,POC 22.5 mmol/L (22-26); O2 SATURATION ARTERIAL,POC 89.4 % (95-98); PO2 ARTERIAL,POC 89 mmHg (83-108); TCO2 ARTERIAL,POC 22.5 mmol/L (23-27)
[2022-12-17] MEDS: Sodium Chloride 0.9% 1,000 ML IV ONE (14:45)
[2022-12-17 15:06] LABS: APPEARANCE,URINE CLEAR; BILIRUBIN,URINE NEGATIVE (NEGATIVE); COLOR,URINE LIGHT YELLOW; GLUCOSE,URINE NEGATIVE (NEGATIVE); KETONES,URINE NEGATIVE (NEGATIVE); LEUKOCYTE ESTERASE,URINE NEGATIVE (NEGATIVE); NITRITE,URINE NEGATIVE (NEGATIVE); OCCULT BLOOD,URINE NEGATIVE (NEGATIVE); PROTEIN,URINE NEGATIVE (NEGATIVE); UROBILINOGEN,URINE 0.2 E.U./dL (0.2-1.0)
[2022-12-17 15:21] LABS: AMPHETAMINES SCREEN, URINE NEGATIVE (NEGATIVE); BARBITURATE SCREEN,URINE NEGATIVE (NEGATIVE); BENZODIAZEPINES SCREEN,URINE NEGATIVE (NEGATIVE); COCAINE METABOLITES,URINE NEGATIVE (NEGATIVE); EDDP,URINE SCREEN NEGATIVE (NEGATIVE); METHAMPHETAMINES SCREEN, URINE NEGATIVE (NEGATIVE); TCA SCREEN,URINE NEGATIVE (NEGATIVE); THC SCREEN,URINE 50 NG/ML NEGATIVE (NEGATIVE)
[2022-12-17 15:22] LABS: BUPRENORPHINE SCREEN,URINE NEGATIVE (NEGATIVE); OXYCODONE SCREEN,URINE NEGATIVE (NEGATIVE)
[2022-12-17 15:24] LABS: CORONAVIRUS COVID-19 NAA NEGATIVE (NEGATIVE); INFLUENZA A NAA NEGATIVE (NEGATIVE); INFLUENZA B NAA NEGATIVE (NEGATIVE); RESPIRATORY SYNCYTIAL VIR NAA NEGATIVE (NEGATIVE)
[2022-12-17] MEDS: Ondansetron 4 MG Tab.DIS PO ONE (16:22)
[2022-12-17] MEDS: Ketorolac 15 MG/ML SDV IVPUSH ONE (16:22)
== END 2022-12-17 17:30 ==
LOC: LL.ED 13:11
DX: F44.9 Dissociative and conversion disorder, unspecified (principal); I10 Essential (primary) hypertension; K21.9 Gastro-esophageal reflux disease without esophagitis; E66.9 Obesity, unspecified; Z86.16 Personal history of COVID-19; Z79.899 Other long term (current) drug therapy; Z20.822 Contact with and (suspected) exposure to COVID-19
CPT/HCPCS: 0241U; 36415; 36600; 70450; 70496; 70498; 80053; 80143; 80179; 80305-QW; 80307; 81003; 82550; 82803; 82947; 83605; 83690; 84484; 84703; 85025; 85610; 85730; 93005; 93010; 96361; 96374; 99284; 99285-25; A9270-GY; J1885; J7030; Q9967